=== PATIENT | female | born 1985 | race Caucasian/White ===

== ENCOUNTER → 2018-09-14 12:19 | Outpatient (CLI) | payer OTHER, SELFPAY ==
[2017-04-26 07:20] VITALS: BMI 39.0
[2018-09-14 16:03] LABS: Anion Gap 7 (5-15); BUN 10 mg/dL (7-18); BUN/Creat Ratio 13.3 RATIO (10-20); Calcium,Total 9.1 mg/dL (8.5-10.1); Chloride 106 mmol/L (98-107); Creatinine, Serum 0.75 mg/dL (0.55-1.02); EST Glomerular Filtration Rate 94 mL/min (>60); Est Glom Filt Rate - Afr Amer 113 mL/min (>60); Glucose 88 mg/dL (74-106); Magnesium 2.3 mg/dL (1.6-2.6); Potassium 4.2 mmol/L (3.5-5.1); Sodium Level 140 mmol/L (136-145)
[2018-09-14 16:05] LABS: Absolute Lymphocyte Count 1.34 X10^3/ul (0.83-4.51); Absolute Neutrophil Count 3.6 X10^3/uL (2.0-7.7); Basophil# 0.02 X10^3/uL; Basophil% 0.4 % (0-1); Eosinophil# 0.05 X10^3/uL; Eosinophils% 0.9 % (0-5); Hematocrit 42.7 % (37-47); Hemoglobin 14.4 g/dl (12.0-15.0); Lymphocyte # 1.34 X10^3/ul (4.0); Lymphocyte % 24.6 % (19-41); Mean Corp Hgb Conc 33.7 g/gl (32-36); Mean Platelet Vol. 10.9 fl (6.2-12.0); Monocyte# 0.45 X10^3/uL; Monocyte% 8.3 % (0-10); Neutrophil # 3.59 X10^3/uL (2.7-7.7); Neutrophil % 65.8 % (47-70); Platelet Count 312 K/mm3 (150-450); RBC Distribution Width SD 45.5 fl (35.1-43.9); White Blood Count 5.5 K/mm3 (4.4-11.0)
[2018-09-14 16:48] LABS: POSITIVE COUNT NO; POSITIVE DIFFERENTIAL NO; POSITIVE MORPHOLOGY NO
== END ==
PROVIDERS: Family Provider Family Medicine; PCP Family Medicine; Referring Provider Family Medicine; Visit Provider Family Medicine
DX: R55 Syncope and collapse (principal)
CPT/HCPCS: 36415; 80048; 83735; 85025

== ENCOUNTER → 2019-02-21 | Outpatient (CLI) | payer OTHER, SELFPAY ==
[2019-02-21 11:00] LABS: Anion Gap 7 (5-15); BUN 14 mg/dL (7-18); BUN/Creat Ratio 17.5 RATIO (10-20); Calcium,Total 8.6 mg/dL (8.5-10.1); Chloride 108 mmol/L (98-107); Cholesterol 171 mg/dL (200); EST Glomerular Filtration Rate 87 mL/min (>60); Est Glom Filt Rate - Afr Amer 105 mL/min (>60); Glucose 86 mg/dL (74-106); High Density Lipoprotein 52 mg/dL; Potassium 3.9 mmol/L (3.5-5.1); Sodium Level 140 mmol/L (136-145); Thyroid Stim Hormone (TSH) 0.67 uIU/mL (0.358-3.74); Triglycerides 66 mg/dL; Very Low Density Lipoprotein 13 mg/dL (5-40)
== END | disposition home or self-care (01) ==
LOC: MFPLAB 08:12
PROVIDERS: Family Provider Family Medicine; PCP Family Medicine; Referring Provider Family Medicine; Visit Provider Family Medicine
DX: E66.9 Obesity, unspecified (principal)
CPT/HCPCS: 36415; 80048; 80061; 84443

== ENCOUNTER → 2019-05-31 09:15 | Outpatient (CLI) | payer OTHER, SELFPAY ==
[2017-04-26 07:20] VITALS: BMI 39.0
--- NOTE | 2019-05-31 09:17 | RAD_ITS ---
STUDY: X-RAY - THORACIC SPINE REASON FOR EXAM: Female, 33 years old. CHRONIC UPPER BACK AND SHOULDER PAIN X 3 YEARS, NO KNOWN INJURY TECHNIQUE: 3 view(s) of the thoracic spine were obtained. COMPARISON: None. FINDINGS: Normal kyphosis of the thoracic spine. There is mild scoliosis of thoracic spine, convexity to the right. There is mild, multilevel endplate spondylosis of the thoracic vertebrae. Normal disc space heights. The soft tissue structures are unremarkable. RAD/Thoracic Spine 3 Views IMPRESSION: Mild scoliosis, convexity to the right, otherwise normal x-ray examination of the thoracic spine. Electronically Signed: Soha Ramirez MD at 0:29 EST , Service support ,
--- NOTE | 2019-05-31 09:17 | RAD_ITS ---
STUDY: X-RAY - RIGHT SHOULDER REASON FOR EXAM: Female, 33 years old. CHRONIC UPPER BACK AND SHOULDER PAIN X 3 YEARS, NO KNOWN INJURY TECHNIQUE: 4 view(s) of the shoulder. COMPARISON: None. FINDINGS: Normal glenohumeral articulation. Normal acromioclavicular joint. Normal acromion. Normal humeral head and visualized proximal humerus. The soft tissue structures are unremarkable. There is no demonstrated fracture. Normal visualized pulmonary apex. RAD/Shoulder min 2 Views IMPRESSION: Normal x-ray examination of the shoulder. Electronically Signed: Soha Ramirez MD at 0:29 EST , Service support ,
== END ==
PROVIDERS: Family Provider Family Medicine; PCP Family Medicine; Referring Provider Family Medicine; Visit Provider Family Medicine
DX: M54.9 Dorsalgia, unspecified (principal)
CPT/HCPCS: 72072; 73030

== ENCOUNTER 2019-06-11 09:00 | Outpatient (RCR) | payer OTHER, SELFPAY ==
--- NOTE | 2019-06-07 08:26 | HP.PTEVAL_ITS ---
Patient's Visit Information SERINA IVY is a 33 year old F referred to Physical Therapy by Denny Pena MD with a diagnosis of T/S pain. Date of Evaluation: 06/07/19 Physical Therapist: Kofi Fierro PT, ATC - Visit Plan Frequency: 2-3x /Week Duration: 4 Weeks Plan: Postural edu, T/S strengthening, core stab ex's, UBE, and HEP - Subjective Findings: Pt reports she has had mid thoracic spine pain for 3 years. Pt reports the pain started after she had her 3rd son. Pt reports the pain had been manageable and intermittent in nature, but the pain has progressively worsened over the last 8 mos. Pt reports her pain has an insidious onset in nature. Occasional sleep difficulty secondary to pain. Pt reports she has had xrays which revealed mild scoliosis of the T/S. Pt reports she has been treated by a chiropractor in the past which had minimal to no benefit. pt reports stretching sometimes and doing the child pose will help to alleviate her pain some. 0/10 pain at rest currently, 6/10 pain at worst. - Pain Thoracic Spine Pain Intensity (Out of 10): 0 Pain Intensity Range: 6 - Objective Neuro: B LE and UE are WNL to light touch. ROM: Pt is limited with ext and R rotation, both increasing pain. All other motions WNL. MMT: B UE and LE are 5/5 throughout. Repeated movements: NE with all movements. Palpation: No obvious deformity or spasms in the T/S - Goals Goal 1:: Decrease T/S pain x 50% to aid with sleep Goal Time Frame: 2-4 Weeks Goal 2:: Pt will have full endrange R rot and ext ROM to aid with IADL's Goal Time Frame: 2-4 Weeks Goal 3:: I with HEP Goal Time Frame: 2-4 Weeks - Rehabilitation Potential Physical Therapy Diagnosis: Pt has back pain and difficulty with IADL's seco ndary to core weakness Rehabilitation Potential: Good - Anticipated Interventions Patient/Client Instruction: Educate patient on: Condition, Plan of Care For the Purpose of:: To improve self management Therapeutic Exercise to Include: Strength training, Endurance training, Body mechanics, Postural training, Dynamic Lumbar Stabilization, Scapular Strength/Stabilization For the Purpose of:: To decrease pain, To increase ROM, To improve muscle performance and motor function Cryotherapy (ice pack, ice massage): Yes Thermo therapy (hot pack): Yes For the Purpose of:: To decrease pain Thank you for the opportunity to evaluate your patient. For Medicare and Medicare HMO plans, please review the plan of care and approve it. It will need to be FAXED BACK to us at [phone] for Medicare purposes. For Medicare only, by signing this I certify the plan of care. Please let me know if there are questions or concerns regarding this plan of care. Physician Signature: Date:
== END 2019-06-11 19:00 | disposition home or self-care (01) ==
LOC: PT 09:00
PROVIDERS: Family Provider Family Medicine; PCP Family Medicine; Referring Provider Family Medicine; Visit Provider Family Medicine
DX: M54.9 Dorsalgia, unspecified (principal)
CPT/HCPCS: 97110; 97161

== ENCOUNTER 2019-06-13 12:44 | Outpatient (RCR) | payer SELFPAY | END 2019-06-13 19:00 | disposition home or self-care (01) | LOC: PT 12:44 | PROVIDERS: Family Provider Family Medicine; PCP Family Medicine; Referring Provider Family Medicine; Visit Provider Family Medicine | DX: M54.9 Dorsalgia, unspecified (principal) ==

== ENCOUNTER 2020-10-07 12:20 | Outpatient (CLI) | payer BC, SELFPAY ==
[2020-10-07 11:52] VITALS: BMI 35.7
[2020-10-07 12:38] VITALS: TEMP 37.5
[2020-10-07 12:39] VITALS: BP 112/73; PULSE 100
[2020-10-07 13:18] VITALS: BMI 35.7
[2020-10-07 13:23] LABS: Hematocrit 35.3 % (37-47); Hemoglobin 11.9 g/dL (12.0-15.0); Mean Corp Hgb Conc 33.7 g/dL (32-36); Mean Corpuscular Hgb 30.7 pg (27.0-32.0); Mean Platelet Vol. 10.7 fl (6.2-12.0); Platelet Count 210 K/mm3 (150-450); RBC Distribution Width CV 13.8 % (11.6-14.6); RBC Distribution Width SD 46.1 fl (35.1-43.9); Red Blood Count 3.88 M/mm3 (4.2-5.4); White Blood Count 6.4 K/mm3 (4.4-11.0)
[2020-10-07 14:33] VITALS: TEMP 37.6
[2020-10-07 14:34] VITALS: BP 116/62; PULSE 81
--- NOTE | 2020-10-09 08:15 | OB.TRI.PN ---
Progress Notes Date of Service: 10/07/20 Progress Note: Patient presents for triage evaluation secondary to tachycardia with nonreactive NST in office. FHR Cat I for 2 hours of monitoring. FHT: Moderate variability reactive no decelerations category I tracing [place]: Irregular Contractions Assessment and plan: Reactive NST, reassuring maternal and status patient discharged to home to follow-up as needed. See problem list details for additional plan information. Laboratory Studies: Laboratory Tests 10/07/20 10/07/20 Range/Units 13:10 13:10 WBC 6.4 (4.4-11.0) K/mm3 RBC 3.88 L (4.2-5.4) M/mm3 Hgb 11.9 L (12.0-15.0) g/dL Hct 35.3 L (37-47) % MCV 91.0 (81-99) fL MCH 30.7 (27.0-32.0) pg MCHC 33.7 (32-36) g/dL RDW Std Deviation 46.1 H (35.1-43.9) fl RDW Coeff of Thi 13.8 (11.6-14.6) % Plt Count 210 (150-450) K/mm3 MPV 10.7 (6.2-12.0) fl Blood Type A NEGATIVE Antibody Screen NEGATIVE [id number]: [id number] non-stress test Interp
== END 2020-10-07 14:52 | disposition home or self-care (01) ==
LOC: WPOUT 12:26 → WP 12:27
PROVIDERS: PCP Family Medicine; Referring Provider Obstetrics & Gynecology; Visit Provider Obstetrics & Gynecology
DX: O36.8390 Maternal care for abnormalities of the fetal heart rate or rhythm, unspecified trimester, not applicable or unspecified (principal); Z3A.00 Weeks of gestation of pregnancy not specified
CPT/HCPCS: 36415; 59025; 59050; 85027; 86850; 86900; 86901; 99218; G0378

== ENCOUNTER → 2022-12-14 | Outpatient (CLI) | payer OTHER, SELFPAY ==
--- NOTE | 2022-12-14 08:30 | MRI_ITS ---
STUDY: MRI THORACIC SPINE WITHOUT CONTRAST REASON FOR EXAM: Female, 37 years old. pain TECHNIQUE: Standardized fat and water weighted pulse sequences were obtained in the sagittal and axial planes. COMPARISON: None. FINDINGS: Normal kyphosis of the thoracic spine. There is no substantial scoliosis. No evidence for acute fracture or subluxation. 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 T1-2, T2-3, T3-4, T4-5, T5-6, T6-7, T7-8, T8-9, T9-10, T10-11, T11-12: Normal endplates. Normal disc hydration, heights and morphology of the corresponding intervertebral discs. Normal central canal and intervertebral neural foramina at the corresponding levels. Normal visualized thoracic cord. Normal conus medullaris that terminates at T12-L1 The soft tissue structures are unremarkable. 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 No evidence for acute fracture or other significant bony pathology.. No significant disc disease, spinal stenosis or compression. Electronically Signed: Jluis Watson MD at 19:13 EDT ,
== END | disposition home or self-care (01) ==
PROVIDERS: PCP Family Medicine; Referring Provider Orthopaedic Surgery; Visit Provider Orthopaedic Surgery
DX: M54.6 Pain in thoracic spine (principal); D18.09 Hemangioma of other sites
CPT/HCPCS: 72146

== ENCOUNTER → 2023-11-15 | Outpatient (CLI) | payer OTHER, SELFPAY ==
[2023-11-20 15:07] LABS: HPV APTIMA, High Risk Negative (Negative)
== END | disposition home or self-care (01) ==
LOC: LABSPEC 14:05
PROVIDERS: PCP Family Medicine; Visit Provider Nurse Practitioner Family
DX: Z12.4 Encounter for screening for malignant neoplasm of cervix (principal)
CPT/HCPCS: 87624; 88175; G0145

== ENCOUNTER → 2023-12-21 | Outpatient (CLI) | payer OTHER, SELFPAY ==
[2023-12-21 09:33] LABS: Absolute Lymphocyte Count 1.32 X10^3/uL (0.83-4.51); Absolute Neutrophil Count 2.8 X10^3/uL (2.0-7.7); Basophil# 0.06 X10^3/uL; Basophil% 1.3 % (0-1); Eosinophil# 0.16 X10^3/uL; Eosinophils% 3.4 % (0-5); Hemoglobin 13.7 g/dL (12.0-15.0); Lymphocyte # 1.32 X10^3/ul (0.83-4.51); Mean Corp Hgb Conc 33.4 g/dL (32-36); Mean Corpuscular Hgb 29.5 pg (27.0-32.0); Mean Corpuscular Volume 88.4 fL (81-99); Mean Platelet Vol. 10.4 fl (6.2-12.0); Monocyte% 8.5 % (0-10); NRBC Flagged by Analyzer 0 % (0-5); Neutrophil # 2.76 X10^3/uL (2.7-7.7); Neutrophil % 58.6 % (47-70); Platelet Count 242 K/mm3 (150-450); RBC Distribution Width CV 13.6 % (11.6-14.6); RBC Distribution Width SD 44.5 fl (35.1-43.9); Red Blood Count 4.64 M/mm3 (4.2-5.4); White Blood Count 4.7 K/mm3 (4.4-11.0)
[2023-12-21 10:02] LABS: Vitamin D,25 Hydroxy 35.6 ng/mL
[2023-12-21 10:10] LABS: Hemoglobin A1c 5.1 % (3.8-5.6)
[2023-12-21 10:16] LABS: ALB/GLOB Ratio 0.9 RATIO (0.9-2.4); AST(SGOT) 14 U/L (15-37); Alanine Aminotransfer ALT/SGPT 21 U/L (13-56); Albumin, Serum 3.9 g/dL (3.2-5.0); Alkaline Phosphatase 76 U/L (45-117); Anion Gap 6 (5-15); BUN 14 mg/dL (7-18); BUN/Creat Ratio 16.1 RATIO (10-20); Calcium,Total 9.4 mg/dL (8.5-10.1); Chloride 108 mmol/L (98-107); Creatinine, Serum 0.87 mg/dL (0.55-1.02); EST Glomerular Filtration Rate 77 mL/min (>60); Est Glom Filt Rate - Afr Amer 93 mL/min (>60); Globulin 4.2 g/dL (2.2-4.2); Glucose 93 mg/dL (74-106); Potassium 3.4 mmol/L (3.5-5.1); Protein, Total 8.1 g/dL (6.4-8.2); Sodium Level 139 mmol/L (136-145); T4 Free Direct 0.97 ng/dL (0.76-1.46); Thyroid Stim Hormone (TSH) 0.68 uIU/mL (0.358-3.74)
== END | disposition home or self-care (01) ==
LOC: PAVLAB 09:17
PROVIDERS: PCP Family Medicine; Referring Provider Nurse Practitioner Family; Visit Provider Nurse Practitioner Family
DX: Z13.29 Encounter for screening for other suspected endocrine disorder (principal); Z13.21 Encounter for screening for nutritional disorder; Z13.1 Encounter for screening for diabetes mellitus; Z13.0 Encounter for screening for diseases of the blood and blood-forming organs and certain disorders involving the immune mechanism
CPT/HCPCS: 36415; 80053; 82306; 83036; 84439; 84443; 85025

== ENCOUNTER → 2024-07-17 | Outpatient (CLI) | payer OTHER, SELFPAY ==
--- NOTE | 2024-07-17 09:08 | BI_ITS ---
PROCEDURE: SCRN MAMM (CAD)W/SALOMON BILAT REASON FOR EXAM: F, Age 39 y/o , routine mammogram. COMPARISON: Baseline TECHNIQUE: Bilateral screening digital breast tomosynthesis with C-View and 2D FFDM. Computer aided detection. FINDINGS: The breasts are heterogeneously dense which may obscure small masses. No suspicious masses areas of architectural distortion or suspicious calcifications. BI/SCRN MAMM (CAD)W/SALOMON BILAT IMPRESSION: BI-RADS 1: NEGATIVE. RECOMMEND ANNUAL MAMMOGRAPHIC SCREENING. The patient will be notified of the results by letter. Reading Location: [facility]
== END | disposition home or self-care (01) ==
LOC: OPBI 09:06
PROVIDERS: PCP Family Medicine; Referring Provider Nurse Practitioner Family; Visit Provider Nurse Practitioner Family
DX: Z12.31 Encounter for screening mammogram for malignant neoplasm of breast (principal)
CPT/HCPCS: 77063; 77067

== ENCOUNTER 2025-04-27 15:01 | Emergency (ER) | payer OTHER, SELFPAY ==
[2025-04-27 15:02] VITALS: BP 137/89; PULSE 119; RESP 16; TEMP 36.7; O2SAT 99; BMI 37.3
--- NOTE | 2025-04-27 15:12 | EX.ED.DYSGE1 ---
HPI History of Present Illness Chief Complaint: Other, Pain/Inj Informant: patient Onset/Context/Timing Onset: Days (3) Context: Gradual Onset Timing: Continuous Quality: It just hurts Location: Left breast Worsened by: Heat, pumping Relieved by: Ice Narrative Narrative: Patient presents with left breast redness that has been getting worse over the past 3 days. Patient admits to some pain over the left breast. Patient states it is constant. Patient states she was treated for mastitis with Keflex recently. Patient states that the mastitis resolved when she completed the course of Keflex. Patient states that it recurred 3 days ago. Patient was restarted on Keflex again. Patient feels some induration and swelling over the medial aspect of the left breast. Patient states she is currently only breast-feeding on the right breast. Patient admits to some subjective chills. Patient states she has been taking Tylenol and ibuprofen [id number] to prevent fevers. Patient denies any discharge or drainage. PFSH PFSH Home Medications ?Medication ?Instructions ?Recorded ?Last Taken ?Type lactobacillus combination no.4 3 3,000 mmu cells PO DAILY 11/07/23 Unknown History billion cell capsule (Probiotic) multivitamin 1 tab PO DAILY 11/07/23 Unknown History amoxicillin 875 mg-potassium 875 mg PO Q12H #20 TABLETS 04/27/25 Unknown Rx clavulanate 125 mg tablet clotrimazole 1 % lotion 1 applic topical BID #30 mL 04/27/25 Unknown Rx Allergy/AdvReac Type Severity Reaction Status Date / Time No Known Allergies Allergy Verified 04/27/25 15:02 Family History Father COPD (chronic obstructive pulmonary disease) Myocardial infarction Surgical History S/P wisdom tooth extraction Social History Smoking Status: Never smoker alcohol intake: never substance use type: does not use caffeine: Yes what type of physical activity do you participate in: walking, weight training and other details: 10,000 steps daily frequency: 3-4 times per week seatbelt use: always do you feel safe at home: Yes additional social history: -Adán ROS ROS ED Constitutional Constitutional ED: Reports chills and subjective; Denies fever(s) Eyes Eyes: Denies blurry vision or change in vision ENT ENT ED: Denies rhinorrhea or sore throat Cardiovascular Cardiovascular: Denies chest pain or palpitations Respiratory/Chest Respiratory/Chest: Denies cough or dyspnea Gastrointestinal Gastrointestinal: Denies nausea or vomiting Genitourinary Genitourinary ED: Denies dysuria or hematuria Musculoskeletal Musculoskeletal: Denies back pain or neck pain Integumentary Denies abscess or rash Neurologic Neurologic: Denies headache(s) or weakness Allergic/Immunologic Allergic/Immunologic ED: Denies mouth swelling or urticaria EXAM Physical Exam Const Vital Signs: 04/27/25 15:02 04/27/25 17:24 Temperature 98.1 F Temperature Source Oral Pulse Rate 119 H 101 H Respiratory Rate 16 15 Blood Pressure 137/89 H 122/84 H Blood Pressure Mean 105 96 Pulse Ox 99 99 Oxygen Delivery Method Room Air Room Air Positive well nourished and well developed Constitutional Narrative: BMI is 37.4. General Appearance ED: well developed and NAD HEENT Reports moist mucous membranes Neck supple and no JVD Resp normal respiratory effort and clear to auscultation bilaterally Cardio regular rate and regular rhythm GI non-tender and non-distended Palpation: soft Neuro oriented x3, CN's II-XII intact bilaterally and no sensory deficits noted Sensorium / Orientation: alert Motor Exam: strength 5/5 throughout Psych mental status grossly normal Skin Skin Narrative: There is erythema, warmth, and induration over the left breast. The induration is over the medial aspect of the breast. There is no fluctuance or palpable abscess. There is no discharge or drainage noted. There is tenderness over the left breast. MDM MDM MDM Narrative Medical decision making narrative: Differential diagnosis includes mastitis, abscess, and cellulitis. CBC will be obtained to assess for leukocytosis and anemia. Basic metabolic profile will be obtained to assess for electrolyte abnormality and renal function. Blood cultures will be obtained to assess for sepsis. Lab Data Attestation: I reviewed the patient's lab results. Lab results narrative: CBC was reviewed and was within normal limits. Basic metabolic profile was reviewed and was within normal limits. Labs: Laboratory Results - last 24 hr 04/27/25 16:45 WBC 6.8 RBC 4.16 L Hgb 12.5 Hct 37.7 MCV 90.6 MCH 30.0 MCHC 33.2 RDW Std Deviation 51.9 H RDW Coeff of Thi 15.5 H Plt Count 273 MPV 9.9 Immature Gran % (Auto) 0.600 Neut % (Auto) 73.8 H Lymph % (Auto) 16.3 L [place] % (Auto) 6.3 Eos % (Auto) 2.3 Baso % (Auto) 0.7 Absolute Neuts (auto) 5.0 Absolute Lymphs (auto) 1.11 Nucleated RBC % 0 Sodium 139 Potassium 3.8 Chloride 106 Carbon Dioxide 22.2 Anion Gap 11 BUN 6 Creatinine 0.71 Estim Creat Clear Calc 115.93 Est GFR (MDRD) Non-Af 110 BUN/Creatinine Ratio 9.1 L Glucose 106 H Calcium 9.4 Treatment and Re-Evaluation :: Patient was given IV fluids and a dose of Unasyn. Patient was feeling better on reevaluation. [id number] ultrasound was performed. I did not see any evidence of any abscess. Patient was given a prescription for formal outpatient breast ultrasound to be done tomorrow as an outpatient. Patient was instructed to stop taking the Keflex. Patient was given a prescription for Augmentin. Patient was also concerned that she could be developing a yeast infection due to the white discoloration of her nipples. Patient was also given a prescription for Lotrimin antifungal cream. Patient was instructed to wash this off prior to nursing. Patient was instructed to follow-up with her STATEMENT SERVICES REPRESENTATIVE in 5 to 7 days. Patient was instructed to return if worse in any way. Patient understood and was agreeable with the plan. All questions were answered. Discharge Plan Triage Chief Complaint: Other, Pain/Inj ED Provider: Ronald Wright Dx/Rx/DC Orders Clinical Impression: Mastitis, Elevated blood pressure reading Instructions: ED Mastitis Prescriptions: New amoxicillin-pot clavulanate 875-125 mg tablet 875 mg PO Q12H Qty: 20 0RF clotrimazole 1 % lotion 1 applic topical BID Qty: 30 0RF No Action multivitamin Tablet 1 tab PO DAILY Probiotic 3 billion cell capsule 3,000 mmu cells PO DAILY Rx Instructions: administer with a meal Other Ambulatory Orders: Breast Limited Unilateral (Routine) Facility: [facility] - Location: [facility] Ordered By: Dr. Ronald Wright Primary Care Provider: Denny Pena Referrals: Denny Pena MD [Primary Care Provider, Family Practice] - 5-7 Days Charito Decker NP-C [Non-Staff -Ordering Privileges, Obstetrics-Gynecology (OBGYN)] - 3-5 Days Activity Restrictions/Additional Instructions: Stop taking the cephalexin. Take the Augmentin twice daily until gone. You are also given a prescription for clotrimazole for fungal infection. Make sure you wash this off of your breast prior to nursing. Follow-up with your STATEMENT SERVICES REPRESENTATIVE in 3 to 5 days. Print Language: Serbian Disposition Disposition: Home, Self Care
--- OUTSIDE RECORDS SUMMARY | 2025-04-27 15:34 | XMS RPT_ITS | CCD ---
Author Organization [facility] Care Team Providers Care Deli Clerk Name Role Phone DENNY MEMBRENO Primary Care Unavailable Dr. Denny Membreno Primary Care Provider Dr. Denny Membreno Referring Provider Dr. Everette Wilson Attending Provider [phone] Dr. Isaias Cordova Attending Provider Denny Membreno MD Primary Care Provider DENNY MEMBRENO Primary Care Unavailable Denny Membreno Primary Care Unavailable Charito Decker Referring Unavailable Charito Decker Attending Unavailable Denny Membreno Primary Care Unavailable Charito Decker Referring Unavailable Charito Decker Attending Unavailable Charito Decker Attending Unavailable Denny Membreno Primary Care Unavailable Charito Decker Attending Unavailable Denny Membreno Referring Unavailable Denny Membreno Primary Care Unavailable Charito Decker Attending Unavailable Denny Membreno Referring Unavailable Denny Membreno Primary Care Unavailable Allergies Allergy Classification Reported Allergen(s) Allergy Type Date of Onset Reaction(s) Facility (3 sources) Seasonal allergy; Translations: [SEASONAL ALLERGIES] Propensity to adverse reactions 12-17-2009 [facility] Medications Current Medications Medication Drug Class(es) Dates Sig (Normalized) Sig (Original) cephalexin 500 mg oral capsule (2 sources) Cephalosporin Antibacterial Start: 10-26-2023 End: 11-02-2023 take 1 capsule by mouth four times daily cephALEXin (KEFLEX) 500 mg capsule Indications: Breast pain, left Take 1 capsule by mouth four times daily for 7 days. 28 capsule 0 10/26/2023 11/02/2023 Active Lactobacillus acidophilus (2 sources) LACTOBACILLUS ACIDOPHILUS (PROBIOTIC ORAL) Take by mouth. 0 Active multivit-minerals/f olic acid (MULTIVITAMIN GUMMIES ORAL) (2 sources) take 1 tablet by mouth once daily multivit-minerals/ folic acid (MULTIVITAMIN GUMMIES ORAL) Take 1 tablet by mouth once daily. 0 Active Fouke (Nk) (1 source) Start: 12-08-2022 Fouke (Nk) Active December 08, 2022 12:00am [id number]-[id number]- FA TAB (2 sources) Start: 12-17-2009 [id number] -FA TAB TAKE ONE DAILY 0 12/17/2009 Active Completed/Discontinued Medications Medication Drug Class(es) Dates Sig (Normalized) Sig (Original) acetaminophen 500 mg oral tablet (1 source) Start: 04-27-2017 End: 09-23-2020 take 1000 mg by mouth every eight hours as needed Acetaminophen Discontinued 1000 MG PO EVERY 8 HOURS NEEDED April 27, 2017 1:00am September 23, 2020 1:56pm docusate sodium 50 mg / sennosides, intermediate 8.6 mg oral tablet (1 source) Start: 04-27-2017 End: 09-23-2020 take 1 tablet by mouth once daily as needed Sennosides-Docusate Sodium Discontinued 1 - 2 TABLET PO DAILY NEEDED April 27, 2017 1:00am September 23, 2020 1:56pm naproxen 250 mg oral tablet (1 source) Nonsteroidal Anti-inflammatory Drug Start: 04-27-2017 End: 09-23-2020 take 250-500 mg by mouth every eight hours as needed Naproxen Discontinued 250 - 500 MG PO EVERY 8 HOURS NEEDED April 27, 2017 1:00am September 23, 2020 1:56pm Vit,Dxar52-Ozek-Hpu ic (1 source) Start: 06-03-2014 End: 12-08-2022 take 1 tablet by mouth once daily Vit,Vemo27-Zxlx-Obl ic Discontinued 1 TABLET PO DAILY June 03, 2014 1:00am December 08, 2022 10:27am Probiotic (1 source) Start: 10-07-2020 End: 12-08-2022 Probiotic Discontinued 1 CAPSULE DAILY October 07, 2020 12:00am December 08, 2022 10:27am Problems Active Problems Problem Classification Problem Date Documented Date Episodic/Chronic Other screening for suspected conditions (not mental disorders or infectious disease) (3 sources) Encounter for screening mammogram for malignant neoplasm of breast; Translations: [Encounter for screening for other suspected endocrine disorder] Onset: 11-24-2023 Episodic Other upper respiratory infections (2 sources) Chronic sinusitis; Translations: [Chronic sinusitis, unspecified] Onset: 08-18-2005 Resolved: 04-23-2012 04-23-2012 Chronic Spondylosis; intervertebral disc disorders; other back problems (2 sources) Prolapsed thoracic intervertebral disc; Translations: [Other intervertebral disc displacement, thoracic region] 12-08-2022 Chronic Spondylosis; intervertebral disc disorders; other back problems (3 sources) Chronic thoracic back pain; Translations: [Pain in thoracic spine] 12-16-2022 Episodic Past or Other Problems Problem Classification Problem Date Documented Da te Episodic/Chronic Hemorrhage during ; abruptio placenta; placenta previa (2 sources) Placenta previa marginalis; Translations: [Partial placenta previa NOS or without hemorrhage, unspecified trimester] Onset: 12-06-2016 Resolved: 01-17-2017 01-17-2017 Episodic Nonmalignant breast conditions (3 sources) Mastodynia; Translations: [Mastodynia] Onset: 11-07-2023 10-26-2023 Episodic OB-related trauma to perineum and vulva (2 sources) Second degree perineal laceration; Translations: [Second degree perineal laceration during delivery] Onset: 04-23-2012 Resolved: 05-12-2014 06-07-2021 Episodic Other complications of (2 sources) Maternal obesity complicating , childbirth and the puerperium, antepartum; Translations: [Obesity complicating , unspecified trimester] Onset: 12-06-2016 Resolved: 06-08-2017 06-08-2017 Chronic Other complications of (3 sources) Poor growth affecting management; Translations: [Maternal care for other known or suspected poor growth, unspecified trimester, not applicable or unspecified] Onset: 02-28-2017 Resolved: 06-08-2017 10-07-2020 Episodic Other complications of (2 sources) H/O: depression; Translations: [History of depression, currently ] Onset: 04-10-2012 Resolved: 06-08-2017 06-08-2017 Episodic Other complications of (2 sources) RhD negative; Translations: [Other specified related conditions, unspecified trimester] Onset: 04-10-2012 Resolved: 06-08-2017 06-07-2021 Episodic Other complications of (2 sources) Finding of pattern of ; Translations: [Supervision of other high risk pregnancies, unspecified trimester] Onset: 10-30-2013 Resolved: 05-12-2014 06-07-2021 Episodic Other and delivery including normal (10 sources) Normal ; Translations: [Encounter for supervision of normal , unspecified, unspecified trimester] Onset: 03-29-2010 Resolved: 11-15-2016 09-23-2020 Episodic Residual codes; unclassified (2 sources) FH: Congenital anomaly; Translations: [Family history of other congenital malformations, deformations and chromosomal abnormalities] Onset: 04-10-2012 Resolved: 05-12-2014 06-07-2021 Episodic Results Test Name Value Interpretation Reference Range Facil ity SCRN MAMM (CAD)W/SALOMON BILATo n 07-17-2024 SCRN MAMM (CAD)W/SALOMON BILAT [facility] Imaging Services [address] [place] [id number] SCRN MAMM (CAD)W/SALOMON BILAT MR#: [id number] Acct: [id number] Name: SERINA IVY Rep #: [id number] : 1985 F 39 From: Elder patel MD PCP: Dr. Denny Membreno MD Status: [facility] Study: SCRN MAMM (CAD)W/SALOMON BILAT Date of Exam: 11/03 Exam# [id number] Ordering Dr: Charito Decker SURGICAL RESIDENT-C PROCEDURE: SCRN MAMM (CAD)W/SALOMON BILAT REASON FOR EXAM: F, Age 39 y/o , routine mammogram. COMPARISON: Baseline TECHNIQUE: Bilateral screening digital breast tomosynthesis with C-View and 2D FFDM. Computer aided detection. FINDINGS: The breasts are heterogeneously dense which may obscure small masses. No suspicious masses areas of architectural distortion or suspicious calcifications. BI/SCRN MAMM (CAD)W/SALOMON BILAT IMPRESSION: BI-RADS 1: NEGATIVE. RECOMMEND ANNUAL MAMMOGRAPHIC SCREENING. The patient will be notified of the results by letter. Reading Location: [facility] CC: TOMER Decker; Dr. Denny Membreno MD Manager Talent: Signed Normal [facility] CBC W/Diff, Automatedon 07 Absolute Lymph 1.32 X10 3/uL Normal 0.83-4.51 [facility] Comment on above: Order Comment: PT ST ATED NOT FASTING AND NOT TO DO LIPID Performed By: #### L 506.0400, L501.9985, L506.1000, L100.0100, L501.9520, L500.4050 #### [facility] [address] [place], [address] Absolute Neut 2.8 X10 3/uL Normal 2.0-7.7 [facility] Comment on above: Order Comment: PT ST ATED NOT FASTING AND NOT TO DO LIPID Performed By: #### L 506.0400, L501.9985, L506.1000, L100.0100, L501.9520, L500.4050 #### [facility] [address] [place], [address] Basophils/100 WBC (Bld) 1.3 % High 0-1 [facility] Comment on above: Order Comment: PT ST ATED NOT FASTING AND NOT TO DO LIPID Performed By: #### L 506.0400, L501.9985, L506.1000, L100.0100, L501.9520, L500.4050 #### [facility] [address] [place], [address] Eosinophils/100 WBC (Bld) 3.4 % Normal 0-5 [facility] Comment on above: Order Comment: PT ST ATED NOT FASTING AND NOT TO DO LIPID Performed By: #### L 506.0400, L501.9985, L506.1000, L100.0100, L501.9520, L500.4050 #### [facility] [address] [place], [address] Erythrocyte distribution width (RBC) [Ratio] 13.6 % Normal 11.6-14.6 [facility] Comment on above: Order Comment: PT ST ATED NOT FASTING AND NOT TO DO LIPID Performed By: #### L 506.0400, L501.9985, L506.1000, L100.0100, L501.9520, L500.4050 #### [facility] [address] [place], [address] Hematocrit (Bld) [Volume fraction] 41.0 % Normal 37-47 [facility] Comment on above: Order Comment: PT ST ATED NOT FASTING AND NOT TO DO LIPID Performed By: #### L 506.0400, L501.9985, L506.1000, L100.0100, L501.9520, L500.4050 #### [facility] [address] [place], [address] Hemoglobin (Bld) [Mass/Vol] 13.7 g/dL Normal 12.0-15.0 [facility] Comment on above: Order Comment: PT ST ATED NOT FASTING AND NOT TO DO LIPID Performed By: #### L 506.0400, L501.9985, L506.1000, L100.0100, L501.9520, L500.4050 #### [facility] [address] [place], [address] IG% 0.200 Normal 0.0-0.9 [facility] Comment on above: Order Comment: PT ST ATED NOT FASTING AND NOT TO DO LIPID Result Comment: IG% - Immature Granulocytes (promyelocytes, myelocytes and metamyelocytes) > 1% indicates that a LEFT SHIFT is Present. Performed By: #### L 506.0400, L501.9985, L506.1000, L100.0100, L501.9520, L500.4050 #### [facility] [address] [place], [address] Lymphocytes/100 WBC (Bld) 28.0 % Normal 19-41 [facility] Comment on above: Order Comment: PT ST ATED NOT FASTING AND NOT TO DO LIPID Performed By: #### L 506.0400, L501.9985, L506.1000, L100.0100, L501.9520, L500.4050 #### [facility] [address] [place], [address] MCH (RBC) [Entitic mass] 29.5 pg Normal 27.0-32.0 [facility] Comment on above: Order Comment: PT ST ATED NOT FASTING AND NOT TO DO LIPID Performed By: #### L 506.0400, L501.9985, L506.1000, L100.0100, L501.9520, L500.4050 #### [facility] [address] [place], [address] MCHC (RBC) [Mass/Vol] 33.4 g/dL Normal 32-36 [facility] Comment on above: Order Comment: PT ST ATED NOT FASTING AND NOT TO DO LIPID Performed By: #### L 506.0400, L501.9985, L506.1000, L100.0100, L501.9520, L500.4050 #### [facility] [address] [place], [address] MCV (RBC) [Entitic vol] 88.4 fL Normal 81-99 [facility] Comment on above: Order Comment: PT ST ATED NOT FASTING AND NOT TO DO LIPID Performed By: #### L 506.0400, L501.9985, L506.1000, L100.0100, L501.9520, L500.4050 #### [facility] [address] [place], [address] Monocytes/100 WBC (Bld) 8.5 % Normal 0-10 [facility] Comment on above: Order Comment: PT ST ATED NOT FASTING AND NOT TO DO LIPID Performed By: #### L 506.0400, L501.9985, L506.1000, L100.0100, L501.9520, L500.4050 #### [facility] [address] [place], [address] Neutrophils/100 WBC (Bld) 58.6 % Normal 47-70 [facility] Comment on above: Order Comment: PT ST ATED NOT FASTING AND NOT TO DO LIPID Performed By: #### L 506.0400, L501.9985, L506.1000, L100.0100, L501.9520, L500.4050 #### [facility] [address] [place], [address] Nucleated RBC (Bld) [#/Vol] 0 10*3/uL Normal 0-5 [facility] Comment on above: Order Comment: PT ST ATED NOT FASTING AND NOT TO DO LIPID Performed By: #### L 506.0400, L501.9985, L506.1000, L100.0100, L501.9520, L500.4050 #### [facility] [address] [place], [address] Platelet mean volume (Bld) [Entitic vol] 10.4 fL Normal 6.2-12.0 [facility] Comment on above: Order Comment: PT ST ATED NOT FASTING AND NOT TO DO LIPID Performed By: #### L 506.0400, L501.9985, L506.1000, L100.0100, L501.9520, L500.4050 #### [facility] [address] [place], [address] Platelets (Bld) [#/Vol] 242 10*3/uL Normal 150-450 [facility] Comment on above: Order Comment: PT ST ATED NOT FASTING AND NOT TO DO LIPID Performed By: #### L 506.0400, L501.9985, L506.1000, L100.0100, L501.9520, L500.4050 #### [facility] [address] [place], [address] RBC (Bld) [#/Vol] 4.64 10*6/uL Normal 4.2-5.4 [facility] Comment on above: Order Comment: PT ST ATED NOT FASTING AND NOT TO DO LIPID Performed By: #### L 506.0400, L501.9985, L506.1000, L100.0100, L501.9520, L500.4050 #### [facility] [address] [place], [address] RDW SD 44.5 fl High 35.1-43.9 [facility] Comment on above: Order Comment: PT ST ATED NOT FASTING AND NOT TO DO LIPID Performed By: #### L 506.0400, L501.9985, L506.1000, L100.0100, L501.9520, L500.4050 #### [facility] [address] [place], [address] WBC (Bld) [#/Vol] 4.7 10*3/uL Normal 4.4-11.0 [facility] Comment on above: Order Comment: PT ST ATED NOT FASTING AND NOT TO DO LIPID Performed By: #### L 506.0400, L501.9985, L506.1000, L100.0100, L501.9520, L500.4050 #### [facility] [address] [place], [address] Comprehensive Metabolic Prof [facility] 12-21-2023 Albumin [Mass/Vol] 3.9 g/dL Normal 3.2-5.0 [facility] Comment on above: Order Comment: PT ST ATED NOT FASTING AND NOT TO DO LIPID Performed By: #### L 506.0400, L501.9985, L506.1000, L100.0100, L501.9520, L500.4050 #### [facility] [address] [place], [address] Albumin/Globulin [Mass ratio] 0.9 {ratio} Normal 0.9-2.4 [facility] Comment on above: Order Comment: PT ST ATED NOT FASTING AND NOT TO DO LIPID Performed By: #### L 506.0400, L501.9985, L506.1000, L100.0100, L501.9520, L500.4050 #### [facility] [address] [place], [address] ALK P 76 U/L Normal 45-117 [facility] Comment on above: Order Comment: PT ST ATED NOT FASTING AND NOT TO DO LIPID Performed By: #### L 506.0400, L501.9985, L506.1000, L100.0100, L501.9520, L500.4050 #### [facility] [address] [place], [address] ALT [Catalytic activity/Vol] 21 U/L Normal 13-56 [facility] Comment on above: Order Comment: PT ST ATED NOT FASTING AND NOT TO DO LIPID Performed By: #### L 506.0400, L501.9985, L506.1000, L100.0100, L501.9520, L500.4050 #### [facility] [address] [place], [address] AST [Catalytic activity/Vol] 14 U/L Low 15-37 [facility] Comment on above: Order Comment: PT ST ATED NOT FASTING AND NOT TO DO LIPID Performed By: #### L 506.0400, L501.9985, L506.1000, L100.0100, L501.9520, L500.4050 #### [facility] [address] [place], [address] Bilirubin [Mass/Vol] 0.60 mg/dL Normal 0.20-1.00 [facility] Comment on above: Order Comment: PT ST ATED NOT FASTING AND NOT TO DO LIPID Result Comment: For patients on eltrombopag therapy, use of Dimension [place] TBIL is not recommended. Performed By: #### L 506.0400, L501.9985, L506.1000, L100.0100, L501.9520, L500.4050 #### [facility] [address] [place], [address] BUN/CRE 16.1 RATIO Normal 10-20 [facility] Comment on above: Order Comment: PT ST ATED NOT FASTING AND NOT TO DO LIPID Performed By: #### L 506.0400, L501.9985, L506.1000, L100.0100, L501.9520, L500.4050 #### [facility] [address] [place], [address] CA,Total 9.4 mg/dL Normal 8.5-10.1 [facility] Comment on above: Order Comment: PT ST ATED NOT FASTING AND NOT TO DO LIPID Performed By: #### L 506.0400, L501.9985, L506.1000, L100.0100, L501.9520, L500.4050 #### [facility] [address] [place], [address] Chloride [Moles/Vol] 108 mmol/L High 98-107 [facility] Comment on above: Order Comment: PT ST ATED NOT FASTING AND NOT TO DO LIPID Performed By: #### L 506.0400, L501.9985, L506.1000, L100.0100, L501.9520, L500.4050 #### [facility] [address] [place], [address] CO2 [Moles/Vol] 25.0 mmol/L Normal 21.0-32.0 [facility] Comment on above: Order Comment: PT ST ATED NOT FASTING AND NOT TO DO LIPID Performed By: #### L 506.0400, L501.9985, L506.1000, L100.0100, L501.9520, L500.4050 #### [facility] [address] [place], [address] Creatinine [Mass/Vol] 0.87 mg/dL Normal 0.55-1.02 [facility] Comment on above: Order Comment: PT ST ATED NOT FASTING AND NOT TO DO LIPID Result Comment: The validity of the calculated GFR GFRAA in patients over 70 years has not been determined. Clinical correlation is essential. Performed By: #### L 506.0400, L501.9985, L506.1000, L100.0100, L501.9520, L500.4050 #### [facility] [address] [place], [address] EST GFR - AA 93 mL/min Normal >60 [facility] Comment on above: Order Comment: PT ST ATED NOT FASTING AND NOT TO DO LIPID Result Comment: Afri can [place] GFR Calc Performed By: #### L 506.0400, L501.9985, L506.1000, L100.0100, L501.9520, L500.4050 #### [facility] [address] [place], [address] GAP 6 Normal 5-15 [facility] Comment on above: Order Comment: PT ST ATED NOT FASTING AND NOT TO DO LIPID Performed By: #### L 506.0400, L501.9985, L506.1000, L100.0100, L501.9520, L500.4050 #### [facility] [address] [place], [address] GFR/1.73 sq M.predicted among non-blacks MDRD (S/P/Bld) [Vol rate/Area] 77 mL/min/{1.73_m2} Normal >60 [facility] Comment on above: Order Comment: PT ST ATED NOT FASTING AND NOT TO DO LIPID Result Comment: Non- GFR Calc Performed By: #### L 506.0400, L501.9985, L506.1000, L100.0100, L501.9520, L500.4050 #### [facility] [address] [place], [address] Globulin (S) [Mass/Vol] 4.2 g/dL Normal 2.2-4.2 [facility] Comment on above: Order Comment: PT ST ATED NOT FASTING AND NOT TO DO LIPID Performed By: #### L 506.0400, L501.9985, L506.1000, L100.0100, L501.9520, L500.4050 #### [facility] [address] [place], [address] Glucose [Mass/Vol] 93 mg/dL Normal 74-106 [facility] Comment on above: Order Comment: PT ST ATED NOT FASTING AND NOT TO DO LIPID Performed By: #### L 506.0400, L501.9985, L506.1000, L100.0100, L501.9520, L500.4050 #### [facility] [address] [place], [address] Potassium [Moles/Vol] 3.4 mmol/L Low 3.5-5.1 [facility] Comment on above: Order Comment: PT ST ATED NOT FASTING AND NOT TO DO LIPID Performed By: #### L 506.0400, L501.9985, L506.1000, L100.0100, L501.9520, L500.4050 #### [facility] [address] [place], [address] Sodium [Moles/Vol] 139 mmol/L Normal 136-145 [facility] Comment on above: Order Comment: PT ST ATED NOT FASTING AND NOT TO DO LIPID Performed By: #### L 506.0400, L501.9985, L506.1000, L100.0100, L501.9520, L500.4050 #### [facility] [address] [place], [address] T PROT 8.1 g/dL Normal 6.4-8.2 [facility] Comment on above: Order Comment: PT ST ATED NOT FASTING AND NOT TO DO LIPID Performed By: #### L 506.0400, L501.9985, L506.1000, L100.0100, L501.9520, L500.4050 #### [facility] [address] [place], [address] Urea nitrogen [Mass/Vol] 14 mg/dL Normal 7-18 [facility] Comment on above: Order Comment: PT ST ATED NOT FASTING AND NOT TO DO LIPID Performed By: #### L 506.0400, L501.9985, L506.1000, L100.0100, L501.9520, L500.4050 #### [facility] [address] [place], [address] Hemoglobin A1con 12-21-2023 HbA1c (Bld) [Mass fraction] 5.1 % Normal 3.8-5.6 [facility] Comment on above: Order Comment: PT ST ATED NOT FASTING AND NOT TO DO LIPID Result Comment: Norm al < 5.7 % Prediabetic 5.7 - 6.4 % Diabetic >or= 6.5 % Please note range changes. Performed By: #### L 506.0400, L501.9985, L506.1000, L100.0100, L501.9520, L500.4050 #### [facility] [address] [place], [address] T4 Free Directon 12-21-2023 T4 FREE DIRECT 0.97 ng/dL Normal 0.76-1.46 [facility] Comment on above: Order Comment: PT ST ATED NOT FASTING AND NOT TO DO LIPID Performed By: #### L 506.0400, L501.9985, L506.1000, L100.0100, L501.9520, L500.4050 #### [facility] [address] [place], [address] Thyroid Stim Hormone (TSH)on 12-21-2023 TSH 0.68 uIU/mL Normal 0.358-3.74 [facility] Comment on above: Order Comment: PT ST ATED NOT FASTING AND NOT TO DO LIPID Performed By: #### L 506.0400, L501.9985, L506.1000, L100.0100, L501.9520, L500.4050 #### [facility] [address] [place], [address] Vitamin D,25 Hydroxyon 12-20 Vitamin D 25-OH 35.6 ng/mL Normal [facility] Comment on above: Order Comment: PT ST ATED NOT FASTING AND NOT TO DO LIPID Result Comment: Meli min D 25(OH) Status Range Deficiency <20 ng/mL (50nmol/L) Insufficiency 20 - 30 ng/mL (50 - 75 nmol/L) Sufficiency 30 - 100 ng/mL (75 - 250 nmol/L) Toxicity >100 ng/mL (>250 nmol/L) Performed By: #### L 506.0400, L501.9985, L506.1000, L100.0100, L501.9520, L500.4050 #### [facility] [address] [place], [address] PAP IG HPV APTIMA 16/18,45on 11-20-2023 ADEQ Comment Normal . [facility] Comment on above: Order Comment: Speci men Comment: [id number] Specimen Comment: Source.............Cervix Specimen Comment: No. of containers..01 ThinPrep Vial Result Comment: Sati sfactory for evaluation. Endocervical and/or squamous metaplastic cells (endocervical component) are present. Performed By: #### L 7400.0280 #### [facility] [address] [place], [address] COMM . Normal . [facility] Comment on above: Order Comment: Speci men Comment: [id number] Specimen Comment: Source.............Cervix Specimen Comment: No. of containers..01 ThinPrep Vial Performed By: #### L 7400.0280 #### [facility] [address] [place], [address] COMMENT Comment Normal . [facility] Comment on above: Order Comment: Speci men Comment: [id number] Specimen Comment: Source.............Cervix Specimen Comment: No. of containers..01 ThinPrep Vial Result Comment: This liquid based ThinPrep(R) pap test was screened with the use of an image guided system. Performed By: #### L 7400.0280 #### [facility] [address] [place], [address] DIAG Comment Normal . [facility] Comment on above: Order Comment: Speci men Comment: [id number] Specimen Comment: Source.............Cervix Specimen Comment: No. of containers..01 ThinPrep Vial Result Comment: NEGA TIVE FOR INTRAEPITHELIAL LESION OR MALIGNANCY. Performed By: #### L 7400.0280 #### [facility] [address] [place], [address] HPV APTIMA, HR Negative Normal Negative [facility] Comment on above: Order Comment: Speci men Comment: [id number] Specimen Comment: Source.............Cervix Specimen Comment: No. of containers..01 ThinPrep Vial Result Comment: This nucleic acid amplification test detects fourteen high- risk HPV types (16,18,31,33,35,39,45,51,52,56,58,59,66,68) without differentiation. Performed By: #### L 7400.0280 #### [facility] [address] [place], [place], [address] HPV Cait Rfx Comment Normal . [facility] Comment on above: Order Comment: Speci men Comment: [id number] Specimen Comment: Source.............Cervix Specimen Comment: No. of containers..01 ThinPrep Vial Result Comment: Crit eria not met, HPV Genotype not performed. Performed at: [facility] - [facility] [place], [place] [id number] Manager Electrical: Karli Bolanos MD, Phone: [phone] Performed at: = - [facility] [address] [place], [place] [id number] Manager Electrical: Karli Bolanos MD, Phone: [phone] Performed By: #### L [id number] #### [facility] [address] [place], [address] PAPSMR Comment Normal . [facility] Comment on above: Order Comment: Speci men Comment: [id number] Specimen Comment: Source.............Cervix Specimen Comment: No. of containers..01 ThinPrep Vial Result Comment: The Pap smear is a screening test designed to aid in the detection of premalignant and malignant conditions of the uterine cervix. It is not a diagnostic procedure and should not be used as the sole means of detecting cervical cancer. Both false-positive and false-negative reports do occur. Performed By: #### L [id number] #### [facility] [address] [place], [place], [address] PERFORM Comment Normal . [facility] Comment on above: Order Comment: Speci men Comment: [id number] Specimen Comment: Source.............Cervix Specimen Comment: No. of containers..01 ThinPrep Vial Result Comment: Ly Chapman, Hoop Maker Machine (ASCP) Performed By: #### L [id number] #### [facility] [address] [place], [address] Socket Puller Office Visit Reporton 11-15-2023 Socket Puller Office Visit Report [facility] 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 Manager Required: No Is patient in pain?: No Allergies No Known Allergies Allergy (Verified 11/15/23 10:36) Medications ???Medication ???Instructions ???Recorded ???Confirmed ???Type lactobacillus combination no.4 3 3,000 mmu cells PO DAILY 11/07/23 11/15/23 History billion cell capsule (Probiotic) multivitamin 1 tab PO DAILY 11/07/23 11/15/23 History Post menopausal: No Patient : No : No Control Method: natural planning [facility] Surgical History S/P wisdom tooth extraction Family History Father COPD (chronic obstructive pulmonary disease) Myocardial infarction Social History Smoking Status: Never smoker alcohol intake: never substance use type: does not use caffeine: Yes what type of physical activity do you participate in: walking, weight training and other details: 10,000 steps daily frequency: 3-4 times per week seatbelt use: always do you feel safe at home: Yes additional social history: -[facility] History 7 Elective abortions Hx Para 5 Spontaneous abortions Hx # Term Pregnancies Ectopic pregnancies Hx # Pregnancies Multiple births # of living children 5 Past Pregnancies Del. Date Name GA/Weeks Outcome Route Bth Weight Infant Gen Labor Lgth Anesthesia Del Locatn Provider FOB Unknown Riddhi 07/24/10 Jose 39 live - full term 6lbs 1oz Male 24 hours epidural [facility] Adán 11/21/12 Tony 40 live - full term 6lbs 11oz Male 4 hours none [facility] Casey Mccain 06/11/14 Sydney 40 live - full term 7lbs Male 4 hours epidural [facility] Dr. Yon Mccain 04/26/17 Pascual 39 live - full term 6lbs Male 6 hours none [facility] Shannon Mccain Delivery Date: 07/24/10 Last Updated by: Ondina Maldonado No issues during or delivery Delivery Date: 11/21/12 Last Updated by: Ondina Maldonado No issues during or delivery Delivery Date: 06/11/14 Last Updated by: Ondina Maldonado No issues during or delivery. Epi was placed but did not work Delivery Date: 04/26/17 Last Updated by: Ondina Maldonado Was told IUGR but high risk doctor didn't think this was accurate. Induced at 39 weeks weeks HPI Encounter for routine gynecological examination Details: SERINA IVY is a 38 year old who presents for annual exam. She reports no issues or concerns today. Last PAP: 2014; normal. History of abnormal PAP: None Last mammogram: None History of abnormal mammogram: None Colon cancer screening: None Other preventative health care screenings: Dr. Denny [place]. Female Reproductive History Last Menstrual Period: 11/01/23 Cycle Length: 21-35 Bleeding Duration: 5 Control Method: natural planning Questions: sexually active: Yes and dyspareunia: No ROS Const Constitutional: Denies chills, fatigue, fever(s), headache(s) or weight loss Eyes Eyes: Denies change in vision ENT ENT: Denies dizziness Resp Resp: Denies cough GI GI: Denies abdominal pain, constipation or nausea : Denies difficulty voiding, dysuria, hematuria, pelvic pain, prolapse symptoms, urinary incontinence, vaginal discharge, vaginal dryness, vaginal odor or vaginal pruritus Skin Skin/Breast: Denies alopecia or rash Neuro Neuro: Denies dizziness Psych Psych: Denies anxiety or depression Endo Endo: Denies cold intolerance, excessive sweating or heat intolerance Exam Const General: cooperative, healthy appearing, comfortable, no acute distress, well groomed and well hydrated Nutritional Appearance: well nourished Orientation: alert, awake and oriented x3 HENMT Head: normal to inspection and normocephalic Ears: hearing grossly normal bilaterally and external ears normal Nose: external nose normal Face and sinus: normal facial exam Eyes General: appearance normal, both eyes and all related structures Neck Neck: normal visual inspection, full ROM and no lymphadenopathy Thyroid: thyroid normal Chest Chest palpation inspection: normal inspection of the chest Breast inspection: normal inspection of the breasts and normal inspection of the axill (more content not included)... Normal [facility] Socket Puller Office Visit Reporton 11-07-2023 Socket Puller Office Visit Report [facility] [address] [place] [address] OFFICE VISIT Date of Service: 11/07/23 MR#: [id number] Acct: [id number] Name: SERINA IVY Rep #: [id number] : 1985 Provider: TOMER Suarez Age/Sex: 38/F Location: [facility] [place] Status: Signed Intake Vital Signs 12/08/22 10:26 11/07/23 09:55 11/07/23 09:56 Height 5 ft 3 in 5 ft 3 in 5 ft 3 in Weight: 219 lb BMI 38.7 BP 127/85 H Intake Visit Reasons: LUMP IN LEFT BREAST Office Manager Required: No Is patient in pain?: No Allergies No Known Allergies Allergy (Verified 11/07/23 09:54) Medications ???Medication ???Instructions ???Recorded ???Confirmed ???Type lactobacillus combination no.4 3 3,000 mmu cells PO DAILY 11/07/23 11/07/23 History billion cell capsule (Probiotic) multivitamin 1 tab PO DAILY 11/07/23 11/07/23 History Post menopausal: No Patient : No : No PFSH Surgical History S/P wisdom tooth extraction Family History (Updated 11/07/23 @ 10:02 by Ondina Maldonado) Father COPD (chronic obstructive pulmonary disease) Myocardial infarction Social History (Updated 11/07/23 @ 10:02 by Ondina Maldonado) Smoking Status: Never smoker alcohol intake: never substance use type: does not use caffeine: Yes what type of physical activity do you participate in: walking, weight training and other details: 10,000 steps daily frequency: 3-4 times per week seatbelt use: always do you feel safe at home: Yes additional social history: -Ad[facility] HPI LUMP IN LEFT BREAST Details: SERINA IVY is a 38 year old who presents for pain in the breast; starting Monday the 26 of October; she also had fever, body aches, and fatigue. She has not breast fed in approx 1 year however is still able to express milk. She went to urgent care that day () and was treated for mastitis with Cephalexin. Since then her symptoms have subsided; She is no longer having breast pain; fever, fatigue, and the lump has gone away. She would also like to discuss her weight; she feels she has been doing all the right things and nothing is changing. Female Reproductive History Last Menstrual Period: 10/29/23 Cycle Length: 21-35 Bleeding Duration: 4 Control Method: No control at this time. Questions: sexually active: Yes and dyspareunia: No History 7 Elective abortions Hx Para 5 Spontaneous abortions Hx # Term Pregnancies Ectopic pregnancies Hx # Pregnancies Multiple births # of living children 5 Past Pregnancies Del. Date Name GA/Weeks Outcome Route Bth Weight Gen Labor Lgth Anesthesia Del Locatn Provider FOB Unknown Riddhi 07/24/10 Jose 39 live - full term 6lbs 1oz Male 24 hours epidural [facility] Adán 11/21/12 Tony 40 live - full term 6lbs 11oz Male 4 hours none [facility] Casey Marvin Adán 06/11/14 Sydney 40 live - full term 7lbs Male 4 hours epidural [facility] Dr. Yon Mccain 04/26/17 Pascual 39 live - full term 6lbs Male 6 hours none [facility] Shannon Joe [facility] Delivery Date: 07/24/10 Last Updated by: Ondina Maldonado No issues during or delivery Delivery Date: 11/21/12 Last Updated by: Ondina Maldonado No issues during or delivery Delivery Date: 06/11/14 Last Updated by: Ondina Maldonado No issues during or delivery. Epi was placed but did not work Delivery Date: 04/26/17 Last Updated by: Ondina Maldonado Was told IUGR but high risk doctor didn't think this was accurate. Induced at 39 weeks weeks ROS Const ROS Unobtainable: All systems reviewed are unremarkable except as noted in H Constitutional: Reports weight gain : Denies system reviewed and no additional complaints, except as documented Skin Skin/Breast: Denies breast mass or breast pain Psych Psych: Reports system reviewed and no additional complaints, except as documented Endo Endo: Denies cold intolerance or heat intolerance Exam Const General: cooperative, healthy appearing, comfortable, no acute distress, well groomed and well hydrated Nutritional Appearance: well nourished Orientation: alert, awake and oriented x3 HENMT Head: normal to inspection and normocephalic Ears: hearing grossly normal bilaterally and external ears normal Nose: external nose normal Face and sinus: normal facial exam Eyes General: appearance normal, both eyes and all related structures Neck Neck: normal visual inspection, full ROM and no lymphadenopathy Thyroid: thyroid normal Chest Chest palpation inspection: normal inspection of the chest Breast inspection: normal inspection of the breasts and normal inspection of the axillae (more content not included)... Normal [facility] 10-27-2023 [facility] Telephone (UCW[facility]) SERINA IVY ([id number]) 1985 F Date Time Provider Department 10/27/23 JONATHAN HEMPHILL [facility] During your visit today, we recorded the following information about you: Allergies As of Date: 10/27/2023 Noted Allergy Reaction SEASONAL ALLERGIES 12/17/2009 Date Reviewed: 10/26/2023 Reviewed by: Danielle Anderson LPN - Fully Assessed Reason for Visit: Orders [681] Primary Visit Diagnosis:Breast pain, left [N64.4] Order(s):[facility] DIAGNOSTIC BILATERAL [[id number]] Order #: [id number] FUTURE Prescriptions as of 10/27/2023 - multivit-minerals/foli c acid (MULTIVITAMIN GUMMIES ORAL) Take 1 tablet by mouth once daily. - cephALEXin (KEFLEX) 500 mg capsule Take 1 capsule by mouth four times daily for 7 days. - LACTOBACILLUS ACIDOPHILUS (PROBIOTIC ORAL) Take by mouth. - MCMKJVKG-EZ-SFM-FE-FA TAB TAKE ONE DAILY Meds Comments as of 12/17/2009: All medications reviewed today/December 17, 2009 Linn Arthur Rn Problem List As Of Date 10/27/2023 Noted Resolved Unspecified sinusitis (chronic) [J32.9] 08/18/2005 04/23/2012 Supervision of normal first [Z34.00] 03/29/2010 04/23/2012 with uncertain dates [Z34.90] 04/10/2012 04/23/2012 History of depression, currently pre*04/10/2012 06/08/2017 Family history of defects [Z82.79] 04/10/2012 05/12/2014 Rh negative status during [O26.899, Z*04/10/2012 06/08/2017 Second degree perineal laceration during delive*04/23/2012 05/12/2014 Supervision of other normal [Z34.80] 10/30/2012 10/30/2013 Short interval between pregnancies complicating* 4 05/12/2014 Supervision of other normal [Z34.80] 02/20/2014 11/15/2016 Marginal placenta previa [O44.20] 12/06/2016 01/17/2017 Obesity complicating [O99.210] 12/06/2016 06/08/2017 Poor growth affecting management of mothe*02/28/2017 06/08/2017 Encounter Status:Closed by JONATHAN HEMPHILL on 10/27/23 [facility] CNOVbenjamin 10-26-2023 CNOV Office Visit (UCWSTR ) SERINA IVY ([id number]) 1985 F Date Time Provider Department 10/26/23 6:00 PM JONATHAN HEMPHILL TR During your visit today, we recorded the following information about you: Temperature Pulse Respiration Blood pressure 99.3 degrees 90/minute 18/minute 139/98 Weight Last Period 98 kg 10/01/23 Peace Diaz APRN.STUDENT SERVICES VICE PRESIDENT 10/27/2023 10:47 AM Signed Subjective Patient came in with complaints of left breast tenderness and nipple discharge or squeezing. Patient says she has not been breast-feeding for a year. Patient says she has had mastitis before. Patient says she has had a sound of the right breast for cyst. Patient denies any fever chills nausea vomiting. The history is provided by the patient. No beamer hand was used. ROS Objective Physical Exam Constitutional: Appearance: Normal appearance. Pulmonary: Effort: Pulmonary effort is normal. Chest: Comments: Patient having pain in area marked above.no masses noted but patient did notice discharge. No discolorations noted Neurological: Mental Status: She is alert. PAST MEDICAL HISTORY Diagnosis Date depression Rh negative status during 04/10/2012 Second degree perineal laceration during delivery 04/23/2012 PAST SURGICAL HISTORY Procedure Laterality Date PAST SURGICAL HISTORY OF WISDOM TEETH ALLERGIES Seasonal Allergies MEDICATIONS multivit-minerals/foli c acid (MULTIVITAMIN GUMMIES ORAL) Take 1 tablet by mouth once daily. LACTOBACILLUS ACIDOPHILUS (PROBIOTIC ORAL) Take by mouth. cephALEXin (KEFLEX) 500 mg capsule Take 1 capsule by mouth four times daily for 7 days. QYGYAFFQ-BW-SKX-FE-FA TAB TAKE ONE DAILY (Patient not taking: Reported on 10/26/2023) FAMILY HISTORY Problem Relation Age of Onset Lipids Father 75 Heart Father Prostate Cancer Maternal Grandfather Hypertension Paternal Grandfather Social History Tobacco Use Smoking status: Never Smokeless tobacco: Never Substance Use Topics Alcohol use: No Drug use: No ASSESSMENT/PLAN: 1. Breast pain, left - ICD9: 611.71, ICD10: N64.4 - CEPHALEXIN 500 MG CAPSULE - CONSULT TO BREAST CENTER Guide antibiotics to cover possible infection. Also placed a consult to the breast center to have her follow-up for further testing due to nipple discharge. Patient was okay with this care plan and will follow-up with the breast center. Peace Diaz APRN.STUDENT SERVICES VICE PRESIDENT Allergies As of Date: 10/26/2023 Noted Allergy Reaction SEASONAL ALLERGIES 12/17/2009 Date Reviewed: 10/26/2023 Reviewed by: Danielle Anderson LPN - Fully Assessed Reason for Visit: Breast Problem [16] Cmt: Possible mastitis, tenderness, pain, discharge from nipple today Primary Visit Diagnosis:Breast pain, left [N64.4] Order(s):cephALEXin (KEFLEX) 500 mg capsuleTake 1 capsule by mouth four times daily for 7 days.Disp: 28 capsuleRfl: 0 CONSULT TO BREAST CENTER [] Order #: [id number]: 1 FUTURE Prescriptions as of 10/27/2023 - multivit-minerals/foli c acid (MULTIVITAMIN GUMMIES ORAL) Take 1 tablet by mouth once daily. - cephALEXin (KEFLEX) 500 mg capsule Take 1 capsule by mouth four times daily for 7 days. - LACTOBACILLUS ACIDOPHILUS (PROBIOTIC ORAL) Take by mouth. - MHDJCHUE-HL-XQC-FE-FA TAB TAKE ONE DAILY Meds Comments as of 12/17/2009: All medications reviewed today/December 17, 2009 Linn Arthur Rn Problem List As Of Date 10/26/2023 Noted Resolved Unspecified sinusitis (chronic) [J32.9] 08/18/2005 04/23/2012 Supervision of normal first [Z34.00] 03/29/2010 04/23/2012 with uncertain dates [Z34.90] 04/10/2012 04/23/2012 History of depression, currently pre*04/10/2012 06/08/2017 Family history of defects [Z82.79] 04/10/2012 05/12/2014 Rh negative status during [O26.899, Z*04/10/2012 06/08/2017 Second degree perineal laceration during delive*04/23/2012 05/12/2014 Supervision of other normal [Z34.80] 10/30/2012 10/30/2013 Short interval between pregnancies complicating* 4 05/12/2014 Supervision of other normal [Z34.80] 02/20/2014 11/15/2016 Marginal placenta previa [O44.20] 12/06/2016 01/17/2017 Obesity complicating [O99.210] 12/06/2016 06/08/2017 Poor growth affecting management of mothe*02/28/2017 06/08/2017 Prescriptions ordered this encounter Disp Refills Start End CEPHALEXIN 500 MG CAPSULE 28 c* 0 10/26/2023 11/02/2023 Route: ORAL Sig: Take 1 capsule by mouth four times daily for 7 days. Encounter Status:Closed by PEACE DIAZ on 10/27/23 Normal [facility] Vital Signs Date Time Vital Sign Value Performing Clinician Madison tobias 10-26-2023 18:12-0400 Body mass index (BMI) [Ratio] 38.27 kg/m2 Jonathan Hemphill DIAMOND PICKER.STUDENT SERVICES VICE PRESIDENT Work Phone: [facility] 10-26-2023 18:12-0400 Body temperature 99.3 [degF] Jonathan Hemphill DIAMOND PICKER.STUDENT SERVICES VICE PRESIDENT Work Phone: [facility] 10-26-2023 18:12-0400 Body weight 98 kg Jonathan Hemphill DIAMOND PICKER.STUDENT SERVICES VICE PRESIDENT Work Phone: [facility] 10-26-2023 18:12-0400 Diastolic blood pressure 98 mm[Hg] Jonathan Hemphill DIAMOND PICKER.STUDENT SERVICES VICE PRESIDENT Work Phone: [facility] 10-26-2023 18:12-0400 Heart rate 90 /min Jonathan Hemphill DIAMOND PICKER.STUDENT SERVICES VICE PRESIDENT Work Phone: [facility] 10-26-2023 18:12-0400 Respiratory rate 18 /min Jonathan Hemphill DIAMOND PICKER.STUDENT SERVICES VICE PRESIDENT Work Phone: [facility] 10-26-2023 18:12-0400 SaO2% (BldA) [Mass fraction] 98 % Jonathan Hemphill DIAMOND PICKER.STUDENT SERVICES VICE PRESIDENT Work Phone: [facility] 10-26-2023 18:12-0400 Systolic blood pressure 139 mm[Hg] Jonathan Hemphill DIAMOND PICKER.STUDENT SERVICES VICE PRESIDENT Work Phone: [facility] 12-08-2022 10:26-0400 Body height 160.[address] Denny Membreno Work Phone: [facility] 12-08-2022 10:26-0400 Body mass index (BMI) [Ratio] 35.1 kg/m2 Dr. Denny Membreno Work Phone: [facility] 12-08-2022 10:26-0400 Body weight 89.[address] Denny Membreno Work Phone: [facility] Encounters Encounter Date Encounter Type Care Provider Facility Start: 07-17-2024 End: 07-17-2024 ambulatory Denny Membreno Facility:[facility] Start: 12-21-2023 End: 12-21-2023 ambulatory Denny Membreno Facility:[facility] Start: 11-15-2023 End: 11-15-2023 ambulatory [facility] [place] [place] Start: 11-15-2023 End: 11-15-2023 ambulatory [facility] Facility:[facility] Start: 11-07-2023 End: 11-07-2023 ambulatory [facility] [place] [place] Start: 10-27-2023 Telephone encounter Jonathan parson DIAMOND PICKER.STUDENT SERVICES VICE PRESIDENT Work Phone: [facility] Comment on above: Orders Start: 10-26-2023 End: 10-26-2023 ambulatory DENNY MEMBRENO Facility:[facility] Start: 10-26-2023 End: 10-26-2023 Patient encounter procedure Jonathan Hemphill DIAMOND PICKER.STUDENT SERVICES VICE PRESIDENT Work Phone: [facility] Comment on above: Breast pain, left (P rimary Dx) Start: 12-16-2022 End: 12-16-[address] Denny Membreno Work Phone: [facility] Work Phone: Start: 12-14-2022 End: 12-14-[address] Denny Membreno Work Phone: [facility] Work Phone: Start: 12-14-2022 End: 12-14-[address] Denny Membreno Work Phone: [facility] Work Phone: Start: 12-08-2022 End: 12-08-[address] Denny Membreno Work Phone: [facility] Work Phone: Start: 03-06-2019 End: 03-10-2019 Patient encounter procedure DENNY MEMBRENO [facility] Procedures Date Procedure Procedure Detail Performing Clinician Start: 12-14-2022 MRI of thoracic spine Casey Membreno Work Phone: Start: 12-08-2022 Radiography of thora cic spine Dr. Denny Membreno Work Phone: Plan of Treatment Date Care Activity Detail Author Start: 02-10-2027 Urine microalbumin profile DTaP,Tdap,Td Vaccine (4 - Td or Tdap) [facility] Start: 02-11-2024 Influenza vaccination Influenz a Vaccine (Season Ended) [facility] Start: 11-02-2023 End: 11-02-2023 Patient encounter procedure 11/02/2023 3:00 PM EDT Appointment [facility] [address] [place] [address] Breast pain, left [N64.4] [facility] Comment on above: Breast pain, left [N 64.4] Start: 06-12-2023 Behavioral Health Screening Behavioral Health Screening [facility] Start: 02-10-2023 Covid-19 Vaccine ( season) Covid-19 Vaccine ( season) [facility] Start: 12-16-2022 Patient referral [facility] Work Phone: Start: 07-22-2019 Screening for malign ant neoplasm of cervix [facility] Start: 2003 Hepatitis B Vaccine (1 of 3 - 19+ 3-dose series) Hepatitis B Vaccine (1 of 3 - 19+ 3-dose series) [facility] End: 11-25-2024 MG Breast - bilateral Diagnostic [facility] Radiology Routine Breast pain, left 1 Occurrences starting 10/27/2023 until 11/25/2024 [facility] Work Phone: Comment on above: 1 Occurrences starti ng 10/27/2023 until 11/25/2024 Patient referral [facility] Work Phone: Immunizations Immunization Date Immunization Notes Care Provider Ru colindres 02-10-2017 RHO(D) immune globul in- IV or IM Jonathan Hemphill DIAMOND PICKER.STUDENT SERVICES VICE PRESIDENT Work Phone: [facility] 02-10-2017 tetanus toxoid, redu bindu diphtheria toxoid, and acellular pertussis vaccine, adsorbed Jonathan Hemphill DIAMOND PICKER.STUDENT SERVICES VICE PRESIDENT Work Phone: [facility] 03-20-2014 influenza, seasonal, injectable Jonathan Hemphill DIAMOND PICKER.STUDENT SERVICES VICE PRESIDENT Work Phone: [facility] 03-20-2014 RHO(D) immune globul in- IV or IM Jonathan Hemphill DIAMOND PICKER.STUDENT SERVICES VICE PRESIDENT Work Phone: [facility] 03-20-2014 tetanus toxoid, redu bindu diphtheria toxoid, and acellular pertussis vaccine, adsorbed Jonathan Hemphill DIAMOND PICKER.STUDENT SERVICES VICE PRESIDENT Work Phone: [facility] 03-20-2014 influenza virus vacc ine, unspecified formulation Jonathan Hemphill DIAMOND PICKER.STUDENT SERVICES VICE PRESIDENT Work Phone: [facility] 09-25-2012 tetanus toxoid, redu bindu diphtheria toxoid, and acellular pertussis vaccine, adsorbed Jonathan Hemphill DIAMOND PICKER.STUDENT SERVICES VICE PRESIDENT Work Phone: [facility] 08-29-2012 RHO(D) immune globul in- IV or IM Jonathan Hemphill DIAMOND PICKER.STUDENT SERVICES VICE PRESIDENT Work Phone: [facility] 05-21-2012 influenza virus vacc ine, unspecified formulation Jonathan Hemphill DIAMOND PICKER.STUDENT SERVICES VICE PRESIDENT Work Phone: [facility] 05-05-2010 RHO(D) immune globul in- IV or IM Jonathan Hemphill DIAMOND PICKER.STUDENT SERVICES VICE PRESIDENT Work Phone: [facility] Payers Date Payer Category Payer Self-pay [id number] 2023 Private Health Insurance [id number] 2023 Private Health Insurance [facility] CHOICE PLUS [id number] 2023-Present [phone] [address] [place] [address] HMO [id number] 2014 Private Health Insurance [id number] 1984 Unknown [id number] Unknown ANTHEM [id number] Unknown [facility] PACKAGE PLAN [id number] Unknown [id number] Unknown [id number] Unknown [id number] Unknown [id number] Unknown [id number] Social History Date Type Detail Facility [facility] Start: 04-26-2017 None [facility] Start: 1985 Sex Assigned At Female [facility] Start: 10-26-2023 [facility] Start: 10-26-2023 Tobacco use and exposure Smokeless tobacco non-user [facility] Start: 10-26-2023 Alcohol intake Current non-dr data services developer of alcohol (finding) [facility] Start: 05-20-2020 End: 10-26-2023 History of Social function [facility] Start: 05-20-2020 End: 10-26-2023 Tobacco use panel [facility] National Score (1-100), lower number is lower risk Not on file [facility] Start: 1985 Sex Assigned At Not on file [facility] Progress note 10-26-2023 Note Date & Type Note Facility 10-26-2023 Note HNO ID: [id number] Author: PEACE DIAZ APRN.TWYLA Service: ? Author Type: Nurse Practitioner Type: Progress Notes Filed: 10/27/2023 10:47 Note Text: Subjective Patient came in with complaints of left breast tenderness and nipple discharge or squeezing. Patient says she has not been breast-feeding for a year. Patient says she has had mastitis before. Patient says she has had a sound of the right breast for cyst. Patient denies any fever chills nausea vomiting. The history is provided by the patient. No beamer hand was used. ROS Objective Physical Exam Constitutional: Appearance: Normal appearance. Pulmonary: Effort: Pulmonary effort is normal. Chest: Comments: Patient having pain in area marked above.no masses noted but patient did notice discharge. No discolorations noted Neurological: Mental Status: She is alert. PAST MEDICAL HISTORY Diagnosis Date depression Rh negative status during 04/10/2012 Second degree perineal laceration during delivery 04/23/2012 PAST SURGICAL HISTORY Procedure Laterality Date PAST SURGICAL HISTORY OF WISDOM TEETH ALLERGIES Seasonal Allergies MEDICATIONS multivit-minerals/folic acid (MULTIVITAMIN GUMMIES ORAL) Take 1 tablet by mouth once daily. LACTOBACILLUS ACIDOPHILUS (PROBIOTIC ORAL) Take by mouth. cephALEXin (KEFLEX) 500 mg capsule Take 1 capsule by mouth four times daily for 7 days. [id number]-FE-FA TAB TAKE ONE DAILY (Patient not taking: Reported on 10/26/2023) FAMILY HISTORY Problem Relation Age of Onset Lipids Father 75 Heart Father Prostate Cancer Maternal Grandfather Hypertension Paternal Grandfather Social History Tobacco Use Smoking status: Never Smokeless tobacco: Never Substance Use Topics Alcohol use: No Drug use: No ASSESSMENT/PLAN: 1. Breast pain, left - ICD9: 611.71, ICD10: N64.4 - CEPHALEXIN 500 MG CAPSULE - CONSULT TO BREAST CENTER Guide antibiotics to cover possible infection. Also placed a consult to the breast center to have her follow-up for further testing due to nipple discharge. Patient was okay with this care plan and will follow-up with the breast center. Peace Diaz APRN.STUDENT SERVICES VICE PRESIDENT [facility] History of Present illness Narrative 10-26-2023 Peace Daiz APRN.CNP - 10/26/2023 6:21 PM EDT Note Date & Type Note Facility 10-26-2023 History of Presen t illness Narrative Images from the original note were not included. Subjective Patient came in with complaints of left breast tenderness and nipple discharge or squeezing. Patient says she has not been breast-feeding for a year. Patient says she has had mastitis before. Patient says she has had a sound of the right breast for cyst. Patient denies any fever chills nausea vomiting. The history is provided by the patient. No beamer hand was used. ROS Objective Physical Exam Constitutional: Appearance: Normal appearance. Pulmonary: Effort: Pulmonary effort is normal. Chest: Comments: Patient having pain in area marked above.no masses noted but patient did notice discharge. No discolorations noted Neurological: Mental Status: She is alert. PAST MEDICAL HISTORY Diagnosis Date depression Rh negative status during 04/10/2012 Second degree perineal laceration during delivery 04/23/2012 PAST SURGICAL HISTORY Procedure Laterality Date PAST SURGICAL HISTORY OF WISDOM TEETH ALLERGIES Seasonal Allergies MEDICATIONS multivit-minerals/folic acid (MULTIVITAMIN GUMMIES ORAL) Take 1 tablet by mouth once daily. LACTOBACILLUS ACIDOPHILUS (PROBIOTIC ORAL) Take by mouth. cephALEXin (KEFLEX) 500 mg capsule Take 1 capsule by mouth four times daily for 7 days. [id number]-FE-FA TAB TAKE ONE DAILY (Patient not taking: Reported on 10/26/2023) FAMILY HISTORY Problem Relation Age of Onset Lipids Father 75 Heart Father Prostate Cancer Maternal Grandfather Hypertension Paternal Grandfather Social History Tobacco Use Smoking status: Never Smokeless tobacco: Never Substance Use Topics Alcohol use: No Drug use: No ASSESSMENT/PLAN: 1. Breast pain, left - ICD9: 611.71, ICD10: N64.4 - CEPHALEXIN 500 MG CAPSULE - CONSULT TO BREAST CENTER Guide antibiotics to cover possible infection. Also placed a consult to the breast center to have her follow-up for further testing due to nipple discharge. Patient was okay with this care plan and will follow-up with the breast center. Peace Diaz APRN.TWYLA documented in this encounter [facility] Evaluation note Note Date & Type Note Facility Evaluation note Diagnosis Onset Date Thoracic disc herniation acu te Thoracic back pain acute [facility] Work Phone: Evaluation note Note Date & Type Note Facility Evaluation note Diagnosis Breast pain, left- Primary Mastodynia documented in this encounter [facility] Evaluation note Note Date & Type Note Facility Evaluation note Diagnosis Breast pain, left- Primary Mastodynia documented in this encounter [facility] Discharge instructions Note Date & Type Note Facility Hospital Discharge instructions Ambulatory OrdersPain Management Location: None Selected [facility] Work Phone: Reason for referral (narrative) Diagnostic Procedure Only (Routine) - Authorized Note Date & Type Note Facility Reason for referral (narrati ve) Specialty Diagnoses / Procedures Referred By Irena mccollum Referred To Contact [facility] Diagnoses Breast pain, left Procedures ELGIN DIAGNOSTIC BILATERAL DIAGNOSTIC MAMMOGRAPHY COMPUTER-AIDED DETCJ BI Jonathan Hemphill APRN.STUDENT SERVICES VICE PRESIDENT [address] [place] [address] [facility] [address] [place] [address] Referral ID Status Reason Start Date Expiration Date Visits Requested Visits Authorized [id number] Authorized Auto-Generat ed Referral 10/27/2023 11/25/2024 1 1 [facility] Summary Purpose Family History No Family History Records Found Relationship Condition Age at Onset Recorded Date/T vane father Hypertension Unknown Chronic obstructive pulmonary disease Unk nown Advance Directives No Advanced Directives Records Found Advance Directive Response Recorded Date/ Time Living Will No April 26 017 8:23am Power of Metal Furniture Polisher No April 26, 2017 8:23am Chief Complaint and Reason for Visit Chief Complaint LUMBER SPINE RM 2 Other intervertebral disc displacement, thoracic r THORACIC SPINE Reason for Visit Thoracic disc hernia tion Thoracic back pain Reason for Referral Specialty Diagnoses / Procedures Referred By Irena mccollum Referred To Contact Breast Diseases Diagnoses Breast pain, left Procedures CONSULT TO BREAST CENTER OFFICE/OUTPATIENT [facility] 60 MINUTES Peace Diaz APRN.STUDENT SERVICES VICE PRESIDENT [address] [place] [address] Referral ID Status Reason Start Date Expiration Date Visits Requested Visits Authorized [id number] Authorized PCP Requested Referral 10/26/2023 10/25/2024 1 1 Additional Source Comments INFORMATION SOURCE (unrecogn ized section and content) DATE CREATED AUTHOR 03/11/2019 [facility] DATE CREATED AUTHOR AUTHOR'S ORGANIZ ATION 10/29/2023 [facility] DATE CREATED AUTHOR AUTHOR'S ORGANIZ ATION 08/03/2024 [facility] Care Teams (unrecognized sec tion and content) Team Status: Active Member Role Status Dates Dr. Denny Membreno MD Family Provider Active Dr. Denny Membreno MD Primary Care Provider Active Team Status: Inactive Member Role Status Dates Dr. Denny Membreno MD Primary Care Provider, Referring Provider Active Dr. Everette Wilson DO Attending Provider Active Team Status: Inactive Member Role Status Dates Dr. Denny Membreno MD Primary Care Provider Active Dr. Isaias Cordova MD Attending Provider Active Team Status: Inactive Member Role Status Dates Dr. Denny Membreno MD Primary Care Provider Active Dr. Everette Wilson DO Attending Provider, Referring P trevon Active Deli Clerk Relationship Specialty Start Date End Date Denny Membreno MD PCP - General Family Medicine 03/30/12 Goals (unrecognized section and content) Goals may be documented in a n alternate section Source Comments (unrecognize d section and content) In the event this informatio n is protected by the Federal Confidentiality of Alcohol and Drug Abuse Patient Records regulations: The Federal rules restrict any use of the information to criminally investigate or prosecute any alcohol or drug abuse patient.[facility] the event this information is protected by the Federal Confidentiality of Alcohol and Drug Abuse Patient Records regulations: The Federal rules restrict any use of the information to criminally investigate or prosecute any alcohol or drug abuse patient.[facility] Reason for Visit (unrecogniz ed section and content) Reason Comments Breast Problem Possible mastitis, t enderness, pain, discharge from nipple today Reason Comments Orders FOR RECORDS PERTAINING TO PATIENTS WHO ARE OR HAVE BEEN ENROLLED IN A CHEMICAL DEPENDENCY/SUBSTANCEABUSE PROGRAM, SOME INFORMATION MAY BE OMITTED. This clinical summary was aggregated from multiple sources. Caution should be exercised in using it in the provision of clinical care. This summary normalizes information from multiple sources, and as a consequence, information in this document may materially change the coding, format and clinical context of patient data. In addition, data may be omitted in some cases. CLINICAL DECISIONS SHOULD BE BASED ON THE PRIMARY CLINICAL RECORDS. [facility]. provides no warranty or guarantee of the accuracy or completeness of information in this document.
[2025-04-27] MEDS: 0.9% Normal Saline (1000mL) 1,000 ML 1000 ML IV (16:50)
[2025-04-27] MEDS: Ampicillin/Sulbactam 3 GM in 0.9% Normal Saline (100mL MB+) 100 ML IV (16:51)
[2025-04-27 16:52] LABS: Hematocrit 37.7 % (37-47); Hemoglobin 12.5 g/dL (12.0-15.0); Immature Granulocytes Count 0.040 X10^3/uL (0.0-0.0); Mean Corp Hgb Conc 33.2 g/dL (32-36); Mean Corpuscular Volume 90.6 fL (81-99); Mean Platelet Vol. 9.9 fl (6.2-12.0); NRBC Flagged by Analyzer 0 % (0-5); Platelet Count 273 K/mm3 (150-450); RBC Distribution Width CV 15.5 % (11.6-14.6); RBC Distribution Width SD 51.9 fl (35.1-43.9); Red Blood Count 4.16 M/mm3 (4.2-5.4); White Blood Count 6.8 K/mm3 (4.4-11.0)
[2025-04-27 17:21] LABS: Anion Gap 11 (5-15); BUN 6 mg/dL (4-19); BUN/Creat Ratio 9.1 RATIO (10-20); Calcium,Total 9.4 mg/dL (7.6-11.0); Carbon Dioxide 22.2 mmol/L (21.0-32.0); Chloride 106 mmol/L (98-108); Estimated Creatinine Clearance 115.93 ml/min (50-250); Glucose 106 mg/dL (70-99); Potassium 3.8 mmol/L (3.3-5.1)
[2025-04-27 17:24] VITALS: BP 122/84; PULSE 101; RESP 15; O2SAT 99
--- NOTE | 2025-04-27 18:09 | ED.RN ---
Mine Shifter called OB at 1700 to bring breast pump to pt.
--- NOTE | 2025-04-27 18:10 | ED.RN ---
Community Association Manager called OB dept again at 1800 to see if they could bring pump. They stated they could not. ER INSTRUMENT PROCESSING TECH went down to OB to get pump.
[2025-04-27 19:08] VITALS: PULSE 94; RESP 18; TEMP 36.9; O2SAT 97
== END 2025-04-27 19:11 | disposition home or self-care (01) ==
PROVIDERS: Emergency Provider Emergency Medicine; PCP Family Medicine; Visit Provider Emergency Medicine
DX: N61.0 Mastitis without abscess (principal); N64.4 Mastodynia; R03.0 Elevated blood-pressure reading, without diagnosis of hypertension
CPT/HCPCS: 80048; 85025; 87040; 96365; 96366; 99283; A4216; J0295